=== PATIENT | female | born 1940 | race Caucasian/White ===

== ENCOUNTER 2020-07-24 17:02 | Emergency (ER) | payer MEDICARE, OTHER ==
[~2020-07-24] VITALS: Ht 165.1 cm; Wt 102.5 kg
[2020-07-24 18:48] LABS: BASO % 0.2 % (0.0-1.0); EOS # 0.1 10^3/uL (0.0-0.5); EOS % 0.6 % (0.0-3.0); HEMOGLOBIN 14.2 g/dl (12.0-15.5); LYMPH % 24.5 % (24.0-44.0); MEAN CORPUSCULAR HEMOGLOBIN 29.9 pg (27.0-33.0); MEAN CORPUSCULAR VOLUME 90.5 fl (80.0-96.0); MONO # 0.5 10^3/uL (0.0-0.8); MONO % 6.2 % (0.0-5.0); NEUTROPHILS # 5.6 10^3/uL (1.5-8.5); NEUTROPHILS % 68.3 % (36.0-66.0); PLATELET COUNT, AUTOMATED 163 10^3/uL (150-450); RED BLOOD COUNT 4.75 10^6/uL (4.00-5.40); WHITE BLOOD COUNT 8.2 10^3/uL (4.0-10.0)
--- NOTE | 2020-07-24 18:57 | REP ---
INDICATION: sob. COMPARISON: None TECHNIQUE: The technique utilized in obtaining the radiograph has magnified the cardiac silhouette and attenuated the interstitial markings. FINDINGS: The cardiac silhouette is magnified by technique. There is mild cardiomegaly. There is a mild diffuse increase in the interstitial markings throughout the lung de leon without evidence of a patchy opacity. The osseous structures are within normal limits. IMPRESSION: Mild fibrotic changes are suspected. There is no evidence of acute cardiopulmonary disease. There is cardiomegaly accentuated by technique. Mild interstitial edema superimposed upon chronic change cannot be ruled out. <Electronically signed by Thomas Rao > 07/24/20 [id number]
[2020-07-24 18:58] LABS: INR 1.13; PROTHROMBIN TIME 14.8 SECONDS (12.5-14.3)
[2020-07-24 19:11] LABS: ALBUMIN 3.9 GM/DL (3.2-5.2); ALT/SGPT 42 U/L (12-78); BLOOD UREA NITROGEN 15 MG/DL (7-18); CARBON DIOXIDE LEVEL 26 MEQ/L (21-32); CHLORIDE LEVEL 110 MEQ/L (98-107); CREATININE FOR GFR 0.73 MG/DL (0.55-1.30); GLOMERULAR FILTRATION RATE > 60.0 (>39); GLUCOSE, FASTING 113 MG/DL (70-100); SODIUM LEVEL 142 MEQ/L (136-145); TOTAL PROTEIN 6.7 GM/DL (6.4-8.2)
--- NOTE | 2020-07-24 19:26 | ECGEPIP ---
[facility] - ED Test Date: 2020-07-24 Pat Name: NATI MAGANA Department: Room: - Gender: Female Graphics Editor: WON : 1940 Requested By: Deana Blue Order Number: [id number] Reading MD: Cooper Abarca Measurements Intervals [place] Rate: 93 P: 56 [place]: 173 QRS: 90 QRSD: 118 T: -4 QT: 378 QTc: 470 Interpretive Statements SINUS RHYTHM LOW QRS VOLTAGE IN PRECORDIAL LEADS RIGHT BUNDLE BRANCH BLOCK POSSIBLE ANTERIOR MYOCARDIAL INFARCTION, OF INDETERMINATE AGE NO PRIORS FOR COMPARISON Electronically Signed on 07-24-2020 19:26:29 EST by Cooper Abarca
[2020-07-24] MEDS: GASTROGRAFIN SOLUTION 30ML PO SCH ×2 (22:03→22:32)
[2020-07-24] MEDS ORDERED: ISOVUE-370 76% 100ML VIAL As Ordered ONE (23:18)
--- NOTE | 2020-07-25 00:09 | REPVR ---
PROCEDURE INFORMATION: Exam: CT Abdomen And Pelvis With Contrast Exam date and time: 07/24/2020 11:29 PM Age: 80 years old Clinical indication: Abdominal pain; Localized; Right; Additional info: Abdominal pain, ruq, rlq, brb per rectum TECHNIQUE: Imaging protocol: Computed tomography of the abdomen and pelvis with intravenous contrast. Radiation optimization: All CT scans at this facility use at least one of these dose optimization techniques: automated exposure control; mA and/or kV adjustment per patient size (includes targeted exams where dose is matched to clinical indication); or iterative reconstruction. Contrast material: ISOVUE 370; Contrast volume: 100 ml; Contrast route: INTRAVENOUS (IV); COMPARISON: No relevant prior studies available. FINDINGS: Liver: Cirrhotic liver morphology with liver surface nodularity. No liver masses are seen. Gallbladder and bile ducts: Multiple small layering calculi in the gallbladder. No gallbladder wall thickening or pericholecystic fluid. No biliary duct dilation. Pancreas: There is a 17 x 11 mm cystic lesion in the body of the pancreas. Pancreas appears mildly atrophic. No solid pancreatic mass, duct dilation, or inflammatory changes. Spleen: Mild splenomegaly. Spleen measures approximately 15 cm. Adrenal glands: Normal. No mass. Kidneys and ureters: Normal. No hydronephrosis. 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 There is colonic diverticulosis without evidence of diverticulitis. The small bowel is unremarkable. Appendix: The appendix is not well-visualized. No right lower quadrant inflammatory changes. Intraperitoneal space: Unremarkable. No free air. No significant fluid collection. Vasculature: Portal vein is patent. No aortic aneurysm or dissection. Lymph nodes: Unremarkable. No enlarged lymph nodes. Urinary bladder: Unremarkable as visualized. Reproductive: There has been prior hysterectomy. Bones/joints: There are advanced degenerative changes in the spine and pelvis. Multilevel spinal stenosis in the lumbar spine. 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 Grade 1 anterolisthesis at L4-L5. Soft tissues: There is a small fat containing umbilical hernia. IMPRESSION: 1. Colonic diverticulosis without evidence of diverticulitis. 2. Incidental lipoma of the ileocecal valve. No bowel obstruction or inflammatory changes. 3. Cirrhotic liver morphology with splenomegaly. 4. Cholelithiasis without secondary signs of acute cholecystitis. 5. Advanced degenerative spondylosis with multilevel spinal stenosis. Advanced degenerative changes in the hips. Electronically signed by: Deshaun Smith On 07/25/2020 00:09:44 AM
[2020-07-25 01:15] VITALS: BP 153/69
== END 2020-07-25 01:25 | disposition home or self-care (01) ==
LOC: M ED 17:02
DX: K57.30 Diverticulosis of large intestine without perforation or abscess without bleeding (principal); I45.10 Unspecified right bundle-branch block; D17.5 Benign lipomatous neoplasm of intra-abdominal organs; R16.1 Splenomegaly, not elsewhere classified; K74.60 Unspecified cirrhosis of liver; K80.20 Calculus of gallbladder without cholecystitis without obstruction; M47.16 Other spondylosis with myelopathy, lumbar region; M16.9 Osteoarthritis of hip, unspecified; I51.7 Cardiomegaly; Z91.011 Allergy to milk products
CPT/HCPCS: 71045; 74177; 80053; 85025; 85610; 86850; 86900; 86901; 93005; 99285; Q9963; Q9967

== ENCOUNTER → 2020-09-14 | Outpatient (REF) | payer MEDICARE, OTHER ==
[2020-09-14 13:05] LABS: BASO % 0.3 % (0.0-1.0); EOS # 0.2 10^3/uL (0.0-0.5); EOS % 1.9 % (0.0-3.0); HEMATOCRIT 48.4 % (36.0-47.0); HEMOGLOBIN 15.3 g/dl (12.0-15.5); LYMPH # 2.4 10^3/uL (1.5-5.0); LYMPH % 25.1 % (24.0-44.0); MEAN CORPUSCULAR HGB CONC 31.6 g/dl (32.0-36.5); MEAN CORPUSCULAR VOLUME 88.6 fl (80.0-96.0); MONO # 0.6 10^3/uL (0.0-0.8); MONO % 6.6 % (0.0-5.0); NEUTROPHILS # 6.3 10^3/uL (1.5-8.5); NEUTROPHILS % 65.8 % (36.0-66.0); PLATELET COUNT, AUTOMATED 163 10^3/uL (150-450); RED BLOOD COUNT 5.46 10^6/uL (4.00-5.40); WHITE BLOOD COUNT 9.6 10^3/uL (4.0-10.0)
[2020-09-14 13:06] LABS: AMORPHOUS SEDIMENT SMALL (NEGATIVE); APPEARANCE, URINE CLOUDY (CLEAR); BACTERIA, URINE AUTO 3+ (NEGATIVE); BILIRUBIN, URINE AUTO NEGATIVE (NEGATIVE); BLOOD, URINE BLOOD 1+ (NEGATIVE); COLOR, URINE YELLOW (YELLOW); GLUCOSE, URINE (UA) AUTO NEGATIVE (NEGATIVE); KETONE, URINE AUTO NEGATIVE (NEGATIVE); LEUKOCYTE ESTERASE, URINE AUTO 3+ (NEGATIVE); MUCUS, URINE SMALL (NEGATIVE); NITRITE, URINE AUTO POSITIVE (NEGATIVE); PROTEIN, URINE AUTO 1+ mg/dL (NEGATIVE); RBC, URINE AUTO 6 /HPF (0-3); SPECIFIC GRAVITY URINE AUTO 1.019 (1.002-1.035); SQUAMOUS EPITHELIAL CELL UR AU 5 /HPF (0-6); UROBILINOGEN, URINE AUTO 0.2 mg/dL (0.0-2.0); WBC, URINE AUTO 91 /HPF (0-3)
[2020-09-14 13:21] LABS: INR 1.12; PROTHROMBIN TIME 14.7 SECONDS (12.5-14.3)
[2020-09-14 13:42] LABS: ALBUMIN 4.1 GM/DL (3.2-5.2); ALT/SGPT 50 U/L (12-78); BILIRUBIN,TOTAL 1.1 MG/DL (0.2-1.0); BLOOD UREA NITROGEN 18 MG/DL (7-18); CALCIUM LEVEL 9.5 MG/DL (8.8-10.2); CARBON DIOXIDE LEVEL 28 MEQ/L (21-32); CHLORIDE LEVEL 104 MEQ/L (98-107); CHOLESTEROL LEVEL 182 MG/DL (<200); CHOLESTEROL RISK RATIO 3.084 (<5); CREATININE FOR GFR 0.74 MG/DL (0.55-1.30); FERRITIN 102 NG/ML (8-252); GLOMERULAR FILTRATION RATE > 60.0 (>39); GLUCOSE, FASTING 127 MG/DL (70-100); HDL CHOLESTEROL 59 MG/DL (>40); IRON (FE) 70 UG/DL (50-170); LDL CHOLESTEROL 101 MG/DL (<100); MAGNESIUM LEVEL 2.1 MG/DL (1.8-2.4); NON-HDL-C 123 MG/DL; PERCENT SATURATION 19.3 % (13.2-45.0); POTASSIUM SERUM 4.1 MEQ/L (3.5-5.1); SODIUM LEVEL 140 MEQ/L (136-145); TOTAL 25(OH) VITAMIN D 10.4 NG/ML (30.0-100.0); TOTAL IRON BINDING CAPACITY 363 UG/DL (250-450); TRIGLYCERIDES LEVEL 108 MG/DL (<150)
[2020-09-14 13:43] LABS: VITAMIN B12 LEVEL 375 PG/ML
[2020-09-14 13:44] LABS: FOLATE 9.6 NG/ML
[2020-09-14 13:54] LABS: HEPATITIS B SURFACE ANTIGEN NEGATIVE (NEGATIVE)
[2020-09-14 14:20] LABS: HEMOGLOBIN A1c 4.6 %; HEPATITIS B CORE ANTIBODY IGM NEGATIVE (NEGATIVE); HEPATITIS C VIRUS ABY INDEX < 0.0 INDEX (<0.8)
[2020-09-14 14:23] LABS: HEPATITIS A ANTIBODY IGM NEGATIVE (NEGATIVE)
== END ==
LOC: M SFHCADAM 11:00
PROVIDERS: ATTEND Physician Assistant Medical
DX: K74.60 Unspecified cirrhosis of liver (principal); E66.01 Morbid (severe) obesity due to excess calories; R03.0 Elevated blood-pressure reading, without diagnosis of hypertension; K92.1 Melena; N39.41 Urge incontinence
CPT/HCPCS: 80053; 80061; 81001; 82105; 82140; 82306; 82607; 82728; 82746; 83036; 83550; 83735; 84443; 85025; 85610; 86705; 86709; 86803; 87086; 87340; G0463

== ENCOUNTER → 2020-09-18 | Outpatient (CLI) | payer MEDICARE, OTHER ==
--- NOTE | 2020-09-18 08:02 | REP ---
INDICATION: CIRRHOSIS OF LIVER COMPARISON: None. TECHNIQUE: Real time bui scale ultrasound examination using curved array transducer. FINDINGS: Liver demonstrates mild coarsened echotexture without focal hepatic lesion identified . Pancreas is incompletely evaluated due to interposed bowel gas but visualized portions appear normal. The gallbladder demonstrates few gallstones without wall thickening, or pericholecystic fluid. No biliary ductal dilatation is appreciated and the common bile duct measures 3.5 mm diameter. Right kidney is normal in reniform shape without hydronephrosis and measures 9.3 x 3.9 x 3.1 cm. No ascites in the visualized right upper quadrant. IMPRESSION: 1. Coarsened hepatic echotexture suggesting hepatocellular disease. No focal hepatic lesion. 2. Cholelithiasis. <Electronically signed by Peter Uribe > 09/18/20 [id number]
== END ==
LOC: M RAD 07:10
PROVIDERS: ATTEND Physician Assistant Medical
DX: K74.60 Unspecified cirrhosis of liver (principal); K80.20 Calculus of gallbladder without cholecystitis without obstruction

== ENCOUNTER → 2020-10-03 | Outpatient (REF) | payer MEDICARE, OTHER | LOC: M SFHCADAM 11:16 | PROVIDERS: ATTEND Physician Assistant Medical | DX: N39.41 Urge incontinence (principal) ==

== ENCOUNTER → 2021-04-03 | Outpatient (REF) | payer MEDICARE, OTHER ==
[2021-04-04 13:23] LABS: AMORPHOUS SEDIMENT MODERATE (NEGATIVE); APPEARANCE, URINE TURBID (CLEAR); BACTERIA, URINE AUTO 3+ (NEGATIVE); BILIRUBIN, URINE AUTO NEGATIVE (NEGATIVE); BLOOD, URINE BLOOD 1+ (NEGATIVE); COLOR, URINE YELLOW (YELLOW); GLUCOSE, URINE (UA) AUTO NEGATIVE (NEGATIVE); KETONE, URINE AUTO NEGATIVE (NEGATIVE); LEUKOCYTE ESTERASE, URINE AUTO 1+ (NEGATIVE); MUCUS, URINE SMALL (NEGATIVE); NITRITE, URINE AUTO POSITIVE (NEGATIVE); PROTEIN, URINE AUTO 1+ mg/dL (NEGATIVE); RBC, URINE AUTO 2 /HPF (0-3); SPECIFIC GRAVITY URINE AUTO 1.025 (1.002-1.035); SQUAMOUS EPITHELIAL CELL UR AU 2 /HPF (0-6); UROBILINOGEN, URINE AUTO 0.2 mg/dL (0.0-2.0); WBC, URINE AUTO 7 /HPF (0-3)
== END ==
LOC: M LABDRWAD 12:41
PROVIDERS: ATTEND Physician Assistant Medical
DX: N39.41 Urge incontinence (principal); E55.9 Vitamin D deficiency, unspecified

== ENCOUNTER → 2021-04-10 | Outpatient (REF) | payer MEDICARE, OTHER ==
[2021-04-10 12:49] LABS: BASO % 0.5 % (0.0-1.0); EOS # 0.2 10^3/uL (0.0-0.5); HEMOGLOBIN 14.8 g/dl (12.0-15.5); LYMPH # 2.9 10^3/uL (1.5-5.0); LYMPH % 32.6 % (24.0-44.0); MEAN CORPUSCULAR HEMOGLOBIN 28.4 pg (27.0-33.0); MEAN CORPUSCULAR HGB CONC 31.5 g/dl (32.0-36.5); MEAN CORPUSCULAR VOLUME 90.2 fl (80.0-96.0); MONO # 0.6 10^3/uL (0.0-0.8); MONO % 6.6 % (2.0-8.0); NEUTROPHILS # 5.1 10^3/uL (1.5-8.5); NEUTROPHILS % 57.8 % (36.0-66.0); PLATELET COUNT, AUTOMATED 159 10^3/uL (150-450); RED BLOOD COUNT 5.21 10^6/uL (4.00-5.40); WHITE BLOOD COUNT 8.8 10^3/uL (4.0-10.0)
[2021-04-10 13:18] LABS: ALT/SGPT 39 U/L (12-78); BILIRUBIN,TOTAL 1.3 MG/DL (0.2-1.0); BLOOD UREA NITROGEN 20 MG/DL (7-18); CALCIUM LEVEL 8.9 MG/DL (8.8-10.2); CARBON DIOXIDE LEVEL 28 MEQ/L (21-32); CHLORIDE LEVEL 106 MEQ/L (98-107); CREATININE FOR GFR 0.71 MG/DL (0.55-1.30); FERRITIN 98 NG/ML (8-252); GLOMERULAR FILTRATION RATE > 60.0 (>39); GLUCOSE, FASTING 102 MG/DL (70-100); IRON (FE) 109 UG/DL (50-170); PERCENT SATURATION 30.8 % (13.2-45.0); POTASSIUM SERUM 3.9 MEQ/L (3.5-5.1); SODIUM LEVEL 140 MEQ/L (136-145); TOTAL IRON BINDING CAPACITY 354 UG/DL (250-450); TOTAL PROTEIN 6.8 GM/DL (6.4-8.2)
== END ==
LOC: M SFHCADAM 11:20
PROVIDERS: ATTEND Physician Assistant Medical
DX: K74.60 Unspecified cirrhosis of liver (principal); E66.01 Morbid (severe) obesity due to excess calories; N39.41 Urge incontinence; E55.9 Vitamin D deficiency, unspecified

== ENCOUNTER → 2021-04-25 | Outpatient (CLI) | payer MEDICARE, OTHER ==
--- NOTE | 2021-04-25 09:05 | REP ---
INDICATION: CIRRHOSIS OF LIVER. COMPARISON: Ultrasound 09/18/2020. CT 07/24/2020. TECHNIQUE: Real-time sonographic evaluation of right upper quadrant performed. FINDINGS: Subcentimeter mobile gallstones are again seen in the gallbladder, the largest measures 8 mm in diameter. There is no gallbladder wall thickening.. There is no intrahepatic or extrahepatic biliary dilatation, common bile duct measures 2 mm in maximum diameter. The liver demonstrates diffuse heterogeneous coarsened echotexture compatible with the history of cirrhosis. No liver mass is visualized sonographically. The pancreas is not optimally visualized due to overlying bowel gas. However, there is a 1.4 cm simple anechoic cystic structure in the body of the pancreas. This is unchanged since the CT exam of 07/24/2020. there is no pancreatic duct dilatation. The right kidney demonstrates no hydronephrosis, with a normal size of 11.1 cm in length. No free fluid is seen. IMPRESSION: Mobile subcentimeter gallstones in the gallbladder without gallbladder wall thickening, free fluid or biliary dilatation. Heterogeneous coarsened echotexture of the liver compatible with cirrhosis, with no evidence of liver mass sonographically. There is a 1.4 cm cystic structure in the body of the pancreas which is unchanged since the CT of 07/24/2020. Recommend follow-up MRI of the pancreas with and without contrast in 6-12 months for further evaluation. <Electronically signed by Jesus Alfaro > 04/25/21 0923
== END ==
LOC: M RAD 08:08
PROVIDERS: ATTEND Physician Assistant Medical
DX: K74.60 Unspecified cirrhosis of liver (principal); K80.20 Calculus of gallbladder without cholecystitis without obstruction; K86.2 Cyst of pancreas

== ENCOUNTER → 2021-12-28 | Outpatient (REF) | payer MEDICARE, OTHER ==
[2021-12-28 12:53] LABS: BASO % 0.4 % (0.0-1.0); EOS # 0.1 10^3/uL (0.0-0.5); EOS % 1.3 % (0.0-3.0); HEMATOCRIT 44.9 % (36.0-47.0); HEMOGLOBIN 14.8 g/dl (12.0-15.5); LYMPH # 2.3 10^3/uL (1.5-5.0); LYMPH % 24.4 % (24.0-44.0); MEAN CORPUSCULAR HEMOGLOBIN 29.3 pg (27.0-33.0); MEAN CORPUSCULAR VOLUME 88.9 fl (80.0-96.0); MONO # 0.7 10^3/uL (0.0-0.8); MONO % 7.5 % (2.0-8.0); NEUTROPHILS # 6.2 10^3/uL (1.5-8.5); PLATELET COUNT, AUTOMATED 153 10^3/uL (150-450); RED BLOOD COUNT 5.05 10^6/uL (4.00-5.40); WHITE BLOOD COUNT 9.4 10^3/uL (4.0-10.0)
[2021-12-28 13:27] LABS: ALBUMIN 3.7 GM/DL (3.2-5.2); ALT/SGPT 30 U/L (12-78); BILIRUBIN,TOTAL 1.4 MG/DL (0.2-1.0); BLOOD UREA NITROGEN 20 MG/DL (7-18); CALCIUM LEVEL 9.5 MG/DL (8.8-10.2); CARBON DIOXIDE LEVEL 24 MEQ/L (21-32); CHLORIDE LEVEL 110 MEQ/L (98-107); CREATININE FOR GFR 0.63 MG/DL (0.55-1.30); FERRITIN 77 NG/ML (8-252); GLOMERULAR FILTRATION RATE > 60.0 (>32); GLUCOSE, FASTING 122 MG/DL (70-100); IRON (FE) 86 UG/DL (50-170); PERCENT SATURATION 25.5 % (13.2-45.0); POTASSIUM SERUM 4.2 MEQ/L (3.5-5.1); SODIUM LEVEL 142 MEQ/L (136-145); TOTAL IRON BINDING CAPACITY 337 UG/DL (250-450); TOTAL PROTEIN 6.6 GM/DL (6.4-8.2)
[2021-12-28 13:28] LABS: TOTAL 25(OH) VITAMIN D 7.4 NG/ML (30.0-100.0)
== END ==
LOC: M SFHCADAM 09:57
PROVIDERS: ATTEND Physician Assistant Medical
DX: K74.60 Unspecified cirrhosis of liver (principal); E66.01 Morbid (severe) obesity due to excess calories; E55.9 Vitamin D deficiency, unspecified; N39.41 Urge incontinence

== ENCOUNTER → 2022-01-23 | Outpatient (CLI) | payer MEDICARE, OTHER | LOC: M PLAIMG 14:46 | PROVIDERS: ATTEND Physician Assistant Medical | DX: K74.60 Unspecified cirrhosis of liver (principal); K86.2 Cyst of pancreas; Z53.9 Procedure and treatment not carried out, unspecified reason ==

== ENCOUNTER → 2022-07-10 | Outpatient (REF) | payer MEDICARE, OTHER ==
[2022-07-10 14:31] LABS: BASO % 0.4 % (0.0-1.0); EOS # 0.1 10^3/uL (0.0-0.5); EOS % 1.6 % (0.0-3.0); HEMATOCRIT 43.9 % (36.0-47.0); HEMOGLOBIN 13.6 g/dl (12.0-15.5); LYMPH # 2.1 10^3/uL (1.5-5.0); LYMPH % 27.5 % (24.0-44.0); MEAN CORPUSCULAR HEMOGLOBIN 28.3 pg (27.0-33.0); MEAN CORPUSCULAR VOLUME 91.5 fl (80.0-96.0); MONO # 0.5 10^3/uL (0.0-0.8); MONO % 6.5 % (2.0-8.0); NEUTROPHILS # 4.8 10^3/uL (1.5-8.5); NEUTROPHILS % 63.6 % (36.0-66.0); PLATELET COUNT, AUTOMATED 149 10^3/uL (150-450); WHITE BLOOD COUNT 7.5 10^3/uL (4.0-10.0)
[2022-07-10 17:24] LABS: ALBUMIN 3.9 G/DL (3.2-5.2); ALT/SGPT 29 U/L (7.0-40); BILIRUBIN,TOTAL 1.1 MG/DL (0.3-1.2); BLOOD UREA NITROGEN 16 MG/DL (9-23); CALCIUM LEVEL 8.7 MG/DL (8.3-10.6); CARBON DIOXIDE LEVEL 25 MMOL/L (20-31); CHLORIDE LEVEL 105 MMOL/L (98-107); CHOLESTEROL LEVEL 169 MG/DL (<200); CHOLESTEROL RISK RATIO 2.84 (<5); CREATININE FOR GFR 0.68 MG/DL (0.55-1.30); GLOMERULAR FILTRATION RATE > 60.0 (>32); GLUCOSE, FASTING 103 MG/DL (74-106); HDL CHOLESTEROL 59.4 MG/DL (>40); LDL CHOLESTEROL 91.8 MG/DL (<100); NON-HDL-C 110 MG/DL; POTASSIUM SERUM 4.4 MMOL/L (3.5-5.1); SODIUM LEVEL 142 MMOL/L (136-145); THYROID STIMULATING HORMONE 1.649 uIU/ML (0.55-4.78); TOTAL 25(OH) VITAMIN D 13.8 NG/ML (20.0-100.0); TOTAL PROTEIN 6.5 G/DL (5.7-8.2); TRIGLYCERIDES LEVEL 89 MG/DL (<150)
== END ==
LOC: M SFHCADAM 10:59
PROVIDERS: ATTEND Physician Assistant Medical
DX: K74.60 Unspecified cirrhosis of liver (principal); E66.01 Morbid (severe) obesity due to excess calories; E55.9 Vitamin D deficiency, unspecified; Z79.899 Other long term (current) drug therapy

== ENCOUNTER 2022-11-25 23:01 | Inpatient (IN) | payer MEDICARE, OTHER ==
[~2022-11-25] VITALS: Ht 162.6 cm; Wt 95.0 kg
[2022-11-25] MEDS ORDERED: ONDANSETRON 4MG 2ML VIAL IV ONE (23:25)
[2022-11-26] MEDS: MORPHINE 2 MG/ML 1ML VIAL IV PRN ×3 (00:08→05:48)
[2022-11-26 00:32] LABS: BASO % 0.3 % (0.0-1.0); EOS % 0.1 % (0.0-3.0); HEMATOCRIT 42.8 % (36.0-47.0); HEMOGLOBIN 14.1 g/dl (12.0-15.5); LYMPH # 0.9 10^3/uL (1.5-5.0); LYMPH % 5.5 % (24.0-44.0); MEAN CORPUSCULAR HEMOGLOBIN 28.5 pg (27.0-33.0); MEAN CORPUSCULAR HGB CONC 32.9 g/dl (32.0-36.5); MEAN CORPUSCULAR VOLUME 86.6 fl (80.0-96.0); NEUTROPHILS % 87.7 % (36.0-66.0); PLATELET COUNT, AUTOMATED 182 10^3/uL (150-450); RED BLOOD COUNT 4.94 10^6/uL (4.00-5.40); WHITE BLOOD COUNT 15.9 10^3/uL (4.0-10.0)
[2022-11-26 00:45] LABS: INR 1.13; PARTIAL THROMBOPLASTIN TIME 26.1 SECONDS (24.8-34.2); PROTHROMBIN TIME 14.7 SECONDS (12.5-14.5)
[2022-11-26 00:47] LABS: CK-MB VALUE MASS 2.9 NG/ML (<3.6)
[2022-11-26 00:49] LABS: BLOOD UREA NITROGEN 25 MG/DL (9-23); CALCIUM LEVEL 8.5 MG/DL (8.3-10.6); CARBON DIOXIDE LEVEL 24 MMOL/L (20-31); CHLORIDE LEVEL 110 MMOL/L (98-107); CREATININE FOR GFR 0.54 MG/DL (0.55-1.30); GLOMERULAR FILTRATION RATE > 60.0 (>32); GLUCOSE, FASTING 139 MG/DL (74-106); POTASSIUM SERUM 3.5 MMOL/L (3.5-5.1); SODIUM LEVEL 142 MMOL/L (136-145)
[2022-11-26 00:59] LABS: CPK CREATINE PHOSPHOKINASE 134 U/L (34-145); MB/CK RELATIVE INDEX 2.16 (< OR =4)
[2022-11-26] MEDS ORDERED: MORPHINE 4 MG/ML 1ML VIAL IV PRN (04:25)
[2022-11-26] MEDS ORDERED: ONDANSETRON 4MG 2ML VIAL IV PRN ×2 (05:05→21:45)
[2022-11-26 05:33] VITALS: BP 116/57
[2022-11-26] MEDS ORDERED: HOME MED LIST COMPLETE! XX SCH (05:55)
[2022-11-26] MEDS: NS 1,000 ML IV SCH ×2 (05:55→15:11)
[2022-11-26] MEDS ORDERED: SODIUM CHLORIDE NASAL 0.65% SPRAY BTL (OCEAN) PRN (08:40)
[2022-11-26] MEDS: MORPHINE 4 MG/ML 1ML VIAL IV PRN ×3 (09:59→22:42)
[2022-11-26] MEDS: NYSTATIN CREAM 15GM TOP SCH ×2 (10:49→23:15)
[2022-11-26 11:00] VITALS: BP 137/61
[2022-11-26 14:00] VITALS: BP 142/81
[2022-11-26] MEDS ORDERED: fentaNYL 100 MCG/2 ML INJECTION As Ordered ONE (20:20)
[2022-11-26] MEDS ORDERED: MIDAZOLAM INJ 2MG/2ML VIAL As Ordered ONE (20:20)
[2022-11-26] MEDS ORDERED: propofoL 200 MG/20 ML VIAL As Ordered ONE ×2 (20:20→20:23)
[2022-11-26] MEDS ORDERED: ONDANSETRON 4MG 2ML VIAL As Ordered ONE (20:20)
[2022-11-26] MEDS ORDERED: LIDOCAINE 2% 100MG/5ML SDV (FOR ANES.) As Ordered ONE (20:20)
[2022-11-26] MEDS ORDERED: ACETAMINOPHEN 1000MG 100ML IV BAG As Ordered ONE (20:20)
[2022-11-26] MEDS ORDERED: ceFAZolin 1GM VIAL As Ordered ONE (21:00)
[2022-11-26] MEDS ORDERED: LR 1,000 ML IV SCH (21:45)
[2022-11-26] MEDS ORDERED: fentaNYL 100 MCG/2 ML INJECTION IV PRN (21:45)
[2022-11-26 22:30] VITALS: BP 133/72
[2022-11-26 23:00] VITALS: BP 109/57
[2022-11-26] MEDS: cefTRIAXone SOD 1 GM in D5W MINI-BAG PLUS 50 ML IV SCH (23:26)
[2022-11-26 23:30] VITALS: BP 109/57
[2022-11-27] VITALS (10 sets, daily range): BP systolic 112–127; BP diastolic 56–73
[2022-11-27] MEDS: NS 1,000 ML IV SCH (01:12)
[2022-11-27] MEDS: ceFAZolin SOD 2 GM in IV 1 EA IV SCH ×2 (05:07→14:07)
[2022-11-27 06:44] LABS: HEMATOCRIT 34.9 % (36.0-47.0); MEAN CORPUSCULAR HEMOGLOBIN 28.2 pg (27.0-33.0); MEAN CORPUSCULAR HGB CONC 32.1 g/dl (32.0-36.5); MEAN CORPUSCULAR VOLUME 87.9 fl (80.0-96.0); PLATELET COUNT, AUTOMATED 129 10^3/uL (150-450); RED BLOOD COUNT 3.97 10^6/uL (4.00-5.40); WHITE BLOOD COUNT 9.8 10^3/uL (4.0-10.0)
[2022-11-27 06:46] LABS: HEMOGLOBIN 11.2 g/dl (12.0-15.5)
[2022-11-27 07:04] LABS: ALBUMIN 2.6 G/DL (3.2-5.2); ALKALINE PHOSPHATASE 88 U/L (46-116); ALT/SGPT 25 U/L (7.0-40); AST/SGOT 33 U/L (<34); BILIRUBIN,TOTAL 0.7 MG/DL (0.3-1.2); BLOOD UREA NITROGEN 19 MG/DL (9-23); CALCIUM LEVEL 7.5 MG/DL (8.3-10.6); CARBON DIOXIDE LEVEL 24 MMOL/L (20-31); CHLORIDE LEVEL 109 MMOL/L (98-107); CREATININE FOR GFR 0.55 MG/DL (0.55-1.30); GLOMERULAR FILTRATION RATE > 60.0 (>32); GLUCOSE, FASTING 162 MG/DL (74-106); MAGNESIUM LEVEL 1.8 MG/DL (1.8-2.4); POTASSIUM SERUM 4.3 MMOL/L (3.5-5.1); SODIUM LEVEL 141 MMOL/L (136-145); TOTAL PROTEIN 4.7 G/DL (5.7-8.2)
[2022-11-27] MEDS: NYSTATIN CREAM 15GM TOP SCH ×2 (09:00→20:44)
[2022-11-27] MEDS: MORPHINE 2 MG/ML 1ML VIAL IV PRN (15:11)
[2022-11-27] MEDS ORDERED: CYCLOBENZAPRINE 5MG TABLET PO PRN (16:30)
[2022-11-27] MEDS: cefTRIAXone SOD 1 GM in D5W MINI-BAG PLUS 50 ML IV SCH (20:44)
[2022-11-28 05:51] VITALS: BP 136/69
[2022-11-28 06:35] LABS: HEMOGLOBIN 10.5 g/dl (12.0-15.5); MEAN CORPUSCULAR HEMOGLOBIN 28.9 pg (27.0-33.0); MEAN CORPUSCULAR HGB CONC 32.8 g/dl (32.0-36.5); MEAN CORPUSCULAR VOLUME 88.2 fl (80.0-96.0); PLATELET COUNT, AUTOMATED 133 10^3/uL (150-450); RED BLOOD COUNT 3.63 10^6/uL (4.00-5.40); WHITE BLOOD COUNT 8.6 10^3/uL (4.0-10.0)
[2022-11-28 06:58] LABS: ALBUMIN 2.5 G/DL (3.2-5.2); ALKALINE PHOSPHATASE 82 U/L (46-116); ALT/SGPT 24 U/L (7.0-40); AST/SGOT 39 U/L (<34); BLOOD UREA NITROGEN 17 MG/DL (9-23); CALCIUM LEVEL 7.5 MG/DL (8.3-10.6); CARBON DIOXIDE LEVEL 27 MMOL/L (20-31); CHLORIDE LEVEL 108 MMOL/L (98-107); CREATININE FOR GFR 0.61 MG/DL (0.55-1.30); GLOMERULAR FILTRATION RATE > 60.0 (>32); GLUCOSE, FASTING 108 MG/DL (74-106); SODIUM LEVEL 139 MMOL/L (136-145); TOTAL PROTEIN 4.5 G/DL (5.7-8.2)
[2022-11-28] MEDS ORDERED: PERC5TAB12 PO (08:00)
[2022-11-28] MEDS ORDERED: CYCL5TAB PO (08:00)
[2022-11-28] MEDS ORDERED: NYST-13 TOP (08:00)
[2022-11-28] MEDS ORDERED: CEFT1INJ4 IV (08:00)
[2022-11-28] MEDS ORDERED: Sodium Chloride Nasal Spray (08:00)
[2022-11-28] MEDS ORDERED: SENN-84 PO (08:01)
[2022-11-28] MEDS ORDERED: COLA100C5 PO (08:01)
== END 2022-11-28 11:12 | DRG 480 ==
LOC: M ED 23:01 → EDBD 23:01 → M ED INP 11-26 05:01 → M MSPAV 11-26 05:35
PROVIDERS: ADMIT Family Medicine; ATTEND Internal Medicine
PROC: 0QS736Z Reposition Left Upper Femur with Intramedullary Internal Fixation Device, Percutaneous Approach (ICD-10-PCS; principal; 2022-11-26 19:00)
DX: S72.142A Displaced intertrochanteric fracture of left femur, initial encounter for closed fracture (principal); J96.01 Acute respiratory failure with hypoxia; N39.0 Urinary tract infection, site not specified; J98.11 Atelectasis; D62 Acute posthemorrhagic anemia; K74.60 Unspecified cirrhosis of liver; B37.9 Candidiasis, unspecified; B96.20 Unspecified Escherichia coli [E. coli] as the cause of diseases classified elsewhere; Z90.49 Acquired absence of other specified parts of digestive tract; Z90.79 Acquired absence of other genital organ(s); Z91.011 Allergy to milk products; Z79.899 Other long term (current) drug therapy; W01.0XXA Fall on same level from slipping, tripping and stumbling without subsequent striking against object, initial encounter; Y92.009 Unspecified place in unspecified non-institutional (private) residence as the place of occurrence of the external cause

== ENCOUNTER 2022-11-28 08:38 | Inpatient (IN) | payer MEDICARE, OTHER ==
[~2022-11-28] VITALS: Ht 162.6 cm; Wt 99.8 kg
[~2022-11-28 08:38] MED LIST: CEFT1INJ4 IV; COLA100C5 PO; CYCL5TAB PO; NYST-13 TOP; PERC5TAB12 PO; SENN-84 PO; Sodium Chloride Nasal Spray
[2022-11-28] MEDS: PANTOPRAZOLE 40MG TAB (PROTONIX) PO SCH ×2 (09:00→12:50)
[2022-11-28] MEDS ORDERED: CYCLOBENZAPRINE 5MG TABLET PO PRN (10:50)
[2022-11-28] MEDS ORDERED: ONDANSETRON 4MG TAB PO PRN (10:50)
[2022-11-28] MEDS ORDERED: BISACODYL 10MG SUPP PR PRN (10:50)
[2022-11-28 11:30] VITALS: BP 125/60
[2022-11-28] MEDS: ENOXAPARIN 40MG/0.4ML SYRINGE (J1650 PER 10MG) SC SCH (12:51)
[2022-11-28] MEDS: NYSTATIN 100,000 UNITS/GM TOPICAL PWD 15GM TOP SCH ×2 (12:51→20:39)
[2022-11-28] MEDS: COMBIVENT RESPIMAT 100-20MCG INHALER 4GM INH SCH ×2 (13:12→20:06)
[2022-11-28 13:56] VITALS: BP 134/63
[2022-11-28] MEDS: guaiFENesin 200 MG TAB PO SCH ×2 (15:41→20:37)
[2022-11-28] MEDS: REMEDY PHYTOPLEX Z-GUARD PASTE 113GM TUBE (FROM STOREROOM PRODUCT) TOP SCH ×2 (15:41→20:42)
[2022-11-28] MEDS ORDERED: ACETAMINOPHEN 500 MG TAB PO SCH (16:00)
[2022-11-28] MEDS: ACETAMINOPHEN 650MG ER TAB (TYLENOL ARTHRITIS) PO SCH ×2 (16:40→20:38)
[2022-11-28] MEDS: LACTOBACILLUS ACIDOPHILUS CAP (BACID) PO SCH (17:28)
[2022-11-28 20:00] VITALS: BP 129/62
[2022-11-28] MEDS: cefTRIAXone SOD 1 GM in D5W MINI-BAG PLUS 50 ML IV ONE ×2 (20:36→21:00)
[2022-11-28] MEDS: SENNA 8.6 MG TAB (SENOKOT) PO SCH (20:37)
[2022-11-28] MEDS: DOCUSATE SODIUM 100MG CAPSULE PO SCH (20:39)
[2022-11-29 05:59] LABS: BASO % 0.5 % (0.0-1.0); EOS # 0.2 10^3/uL (0.0-0.5); EOS % 2.3 % (0.0-3.0); HEMATOCRIT 33.4 % (36.0-47.0); LYMPH # 2.3 10^3/uL (1.5-5.0); LYMPH % 29.1 % (24.0-44.0); MEAN CORPUSCULAR HEMOGLOBIN 28.6 pg (27.0-33.0); MEAN CORPUSCULAR HGB CONC 32.9 g/dl (32.0-36.5); MEAN CORPUSCULAR VOLUME 86.8 fl (80.0-96.0); MONO # 0.7 10^3/uL (0.0-0.8); MONO % 8.8 % (2.0-8.0); NEUTROPHILS # 4.7 10^3/uL (1.5-8.5); NEUTROPHILS % 58.8 % (36.0-66.0); PLATELET COUNT, AUTOMATED 146 10^3/uL (150-450); RED BLOOD COUNT 3.85 10^6/uL (4.00-5.40)
[2022-11-29 06:00] VITALS: BP 160/80
[2022-11-29 06:37] LABS: ALBUMIN 2.6 G/DL (3.2-5.2); ALKALINE PHOSPHATASE 92 U/L (46-116); ALT/SGPT 29 U/L (7.0-40); AST/SGOT 56 U/L (<34); BILIRUBIN,TOTAL 1.3 MG/DL (0.3-1.2); BLOOD UREA NITROGEN 15 MG/DL (9-23); CALCIUM LEVEL 7.4 MG/DL (8.3-10.6); CARBON DIOXIDE LEVEL 29 MMOL/L (20-31); CHLORIDE LEVEL 106 MMOL/L (98-107); CREATININE FOR GFR 0.56 MG/DL (0.55-1.30); GLOMERULAR FILTRATION RATE > 60.0 (>32); GLUCOSE, FASTING 102 MG/DL (74-106); POTASSIUM SERUM 3.8 MMOL/L (3.5-5.1); SODIUM LEVEL 142 MMOL/L (136-145); TOTAL PROTEIN 4.8 G/DL (5.7-8.2)
[2022-11-29] MEDS: COMBIVENT RESPIMAT 100-20MCG INHALER 4GM INH SCH ×3 (07:14→21:07)
[2022-11-29] MEDS: ACETAMINOPHEN 650MG ER TAB (TYLENOL ARTHRITIS) PO SCH ×3 (08:28→21:36)
[2022-11-29] MEDS: REMEDY PHYTOPLEX Z-GUARD PASTE 113GM TUBE (FROM STOREROOM PRODUCT) TOP SCH ×3 (08:28→21:37)
[2022-11-29] MEDS: DOCUSATE SODIUM 100MG CAPSULE PO SCH ×2 (08:28→21:00)
[2022-11-29] MEDS: LACTOBACILLUS ACIDOPHILUS CAP (BACID) PO SCH ×2 (08:28→17:41)
[2022-11-29] MEDS: guaiFENesin 200 MG TAB PO SCH ×3 (08:28→21:36)
[2022-11-29] MEDS: ENOXAPARIN 40MG/0.4ML SYRINGE (J1650 PER 10MG) SC SCH (08:28)
[2022-11-29] MEDS: PANTOPRAZOLE 40MG TAB (PROTONIX) PO SCH (08:28)
[2022-11-29] MEDS: NYSTATIN 100,000 UNITS/GM TOPICAL PWD 15GM TOP SCH ×2 (08:32→21:36)
[2022-11-29] MEDS ORDERED: FUROSEMIDE 20MG/2ML VIAL IV ONE (10:40)
[2022-11-29] MEDS: oxyCODONE 5MG TAB PO PRN (12:05)
[2022-11-29 14:00] VITALS: BP 133/62
[2022-11-29 20:00] VITALS: BP 123/70
[2022-11-29] MEDS: SENNA 8.6 MG TAB (SENOKOT) PO SCH (21:00)
[2022-11-30 06:00] VITALS: BP 132/66
[2022-11-30] MEDS: ACETAMINOPHEN 650MG ER TAB (TYLENOL ARTHRITIS) PO SCH (07:35)
[2022-11-30] MEDS: NYSTATIN 100,000 UNITS/GM TOPICAL PWD 15GM TOP SCH ×2 (07:36→20:29)
[2022-11-30] MEDS: DOCUSATE SODIUM 100MG CAPSULE PO SCH ×2 (07:36→20:27)
[2022-11-30] MEDS: LACTOBACILLUS ACIDOPHILUS CAP (BACID) PO SCH ×2 (07:36→16:46)
[2022-11-30] MEDS: ENOXAPARIN 40MG/0.4ML SYRINGE (J1650 PER 10MG) SC SCH (07:36)
[2022-11-30] MEDS: PANTOPRAZOLE 40MG TAB (PROTONIX) PO SCH (07:36)
[2022-11-30] MEDS: REMEDY PHYTOPLEX Z-GUARD PASTE 113GM TUBE (FROM STOREROOM PRODUCT) TOP SCH ×3 (07:37→20:30)
[2022-11-30] MEDS: guaiFENesin 200 MG TAB PO SCH ×3 (07:37→20:27)
[2022-11-30] MEDS: COMBIVENT RESPIMAT 100-20MCG INHALER 4GM INH SCH ×3 (07:40→20:12)
[2022-11-30] MEDS: ACETAMINOPHEN 325 MG TAB PO SCH ×3 (09:35→20:29)
[2022-11-30 10:24] LABS: BASO % 0.5 % (0.0-1.0); EOS # 0.2 10^3/uL (0.0-0.5); EOS % 2.1 % (0.0-3.0); LYMPH # 1.5 10^3/uL (1.5-5.0); LYMPH % 17.2 % (24.0-44.0); MEAN CORPUSCULAR HEMOGLOBIN 28.4 pg (27.0-33.0); MEAN CORPUSCULAR HGB CONC 32.4 g/dl (32.0-36.5); MEAN CORPUSCULAR VOLUME 87.9 fl (80.0-96.0); MONO # 0.7 10^3/uL (0.0-0.8); MONO % 7.7 % (2.0-8.0); NEUTROPHILS # 6.4 10^3/uL (1.5-8.5); NEUTROPHILS % 71.9 % (36.0-66.0); PLATELET COUNT, AUTOMATED 176 10^3/uL (150-450); RED BLOOD COUNT 3.87 10^6/uL (4.00-5.40); WHITE BLOOD COUNT 8.8 10^3/uL (4.0-10.0)
[2022-11-30 10:54] LABS: BLOOD UREA NITROGEN 18 MG/DL (9-23); CALCIUM LEVEL 7.6 MG/DL (8.3-10.6); CARBON DIOXIDE LEVEL 25 MMOL/L (20-31); CHLORIDE LEVEL 103 MMOL/L (98-107); GLOMERULAR FILTRATION RATE > 60.0 (>32); GLUCOSE, FASTING 159 MG/DL (74-106); POTASSIUM SERUM 3.5 MMOL/L (3.5-5.1); SODIUM LEVEL 137 MMOL/L (136-145)
[2022-11-30 14:00] VITALS: BP 134/58
[2022-11-30] MEDS ORDERED: ACETAMINOPHEN 325 MG TAB PO SCH (16:00)
[2022-11-30 20:00] VITALS: BP 128/59
[2022-11-30] MEDS: SENNA 8.6 MG TAB (SENOKOT) PO SCH (20:27)
[2022-12-01 06:00] VITALS: BP 130/62
[2022-12-01] MEDS: COMBIVENT RESPIMAT 100-20MCG INHALER 4GM INH SCH ×3 (07:16→21:09)
[2022-12-01] MEDS: PANTOPRAZOLE 40MG TAB (PROTONIX) PO SCH (08:23)
[2022-12-01] MEDS: LACTOBACILLUS ACIDOPHILUS CAP (BACID) PO SCH ×2 (08:24→17:59)
[2022-12-01] MEDS: guaiFENesin 200 MG TAB PO SCH ×3 (08:25→19:39)
[2022-12-01] MEDS: ACETAMINOPHEN 325 MG TAB PO SCH ×3 (08:26→19:39)
[2022-12-01] MEDS: DOCUSATE SODIUM 100MG CAPSULE PO SCH ×2 (08:26→19:43)
[2022-12-01] MEDS: ENOXAPARIN 40MG/0.4ML SYRINGE (J1650 PER 10MG) SC SCH (08:26)
[2022-12-01] MEDS: REMEDY PHYTOPLEX Z-GUARD PASTE 113GM TUBE (FROM STOREROOM PRODUCT) TOP SCH ×3 (08:27→19:44)
[2022-12-01] MEDS: NYSTATIN 100,000 UNITS/GM TOPICAL PWD 15GM TOP SCH ×2 (08:28→19:43)
[2022-12-01 14:00] VITALS: BP 142/63
[2022-12-01] MEDS: PREPARATION H OINTMENT (HEMORRHOID) PR PRN (19:40)
[2022-12-01] MEDS: SENNA 8.6 MG TAB (SENOKOT) PO SCH (19:43)
[2022-12-01 20:00] VITALS: BP 122/61
[2022-12-02 06:00] VITALS: BP 126/60
[2022-12-02 06:11] LABS: BASO % 0.1 % (0.0-1.0); EOS # 0.3 10^3/uL (0.0-0.5); EOS % 4.8 % (0.0-3.0); HEMATOCRIT 32.5 % (36.0-47.0); HEMOGLOBIN 10.5 g/dl (12.0-15.5); LYMPH # 1.8 10^3/uL (1.5-5.0); LYMPH % 26.6 % (24.0-44.0); MEAN CORPUSCULAR HEMOGLOBIN 28.6 pg (27.0-33.0); MEAN CORPUSCULAR HGB CONC 32.3 g/dl (32.0-36.5); MEAN CORPUSCULAR VOLUME 88.6 fl (80.0-96.0); MONO # 0.6 10^3/uL (0.0-0.8); MONO % 8.8 % (2.0-8.0); PLATELET COUNT, AUTOMATED 175 10^3/uL (150-450); RED BLOOD COUNT 3.67 10^6/uL (4.00-5.40); WHITE BLOOD COUNT 6.7 10^3/uL (4.0-10.0)
[2022-12-02 06:41] LABS: BLOOD UREA NITROGEN 14 MG/DL (9-23); CALCIUM LEVEL 7.8 MG/DL (8.3-10.6); CARBON DIOXIDE LEVEL 27 MMOL/L (20-31); CHLORIDE LEVEL 105 MMOL/L (98-107); CREATININE FOR GFR 0.58 MG/DL (0.55-1.30); GLOMERULAR FILTRATION RATE > 60.0 (>32); GLUCOSE, FASTING 119 MG/DL (74-106); POTASSIUM SERUM 3.4 MMOL/L (3.5-5.1); SODIUM LEVEL 139 MMOL/L (136-145)
[2022-12-02] MEDS: COMBIVENT RESPIMAT 100-20MCG INHALER 4GM INH SCH ×3 (07:28→20:11)
[2022-12-02] MEDS: PANTOPRAZOLE 40MG TAB (PROTONIX) PO SCH (08:20)
[2022-12-02] MEDS: LACTOBACILLUS ACIDOPHILUS CAP (BACID) PO SCH ×2 (08:20→17:12)
[2022-12-02] MEDS: guaiFENesin 200 MG TAB PO SCH ×3 (08:20→20:31)
[2022-12-02] MEDS: ENOXAPARIN 40MG/0.4ML SYRINGE (J1650 PER 10MG) SC SCH (08:21)
[2022-12-02] MEDS: ACETAMINOPHEN 325 MG TAB PO SCH ×3 (08:21→20:31)
[2022-12-02] MEDS: REMEDY PHYTOPLEX Z-GUARD PASTE 113GM TUBE (FROM STOREROOM PRODUCT) TOP SCH ×3 (08:22→20:32)
[2022-12-02] MEDS: DOCUSATE SODIUM 100MG CAPSULE PO SCH ×3 (08:22→20:36)
[2022-12-02] MEDS: NYSTATIN 100,000 UNITS/GM TOPICAL PWD 15GM TOP SCH ×2 (08:22→20:32)
[2022-12-02] MEDS: oxyCODONE 5MG TAB PO PRN (13:16)
[2022-12-02 13:58] VITALS: BP 138/65
[2022-12-02] MEDS ORDERED: POTASSIUM CHLORIDE 10MEQ SR TABLET PO ONE (17:00)
[2022-12-02 20:00] VITALS: BP 133/67
[2022-12-02] MEDS: SENNA 8.6 MG TAB (SENOKOT) PO SCH (20:31)
[2022-12-03 06:08] VITALS: BP 127/60
[2022-12-03 06:15] LABS: BLOOD UREA NITROGEN 17 MG/DL (9-23); CALCIUM LEVEL 7.7 MG/DL (8.3-10.6); CARBON DIOXIDE LEVEL 27 MMOL/L (20-31); CHLORIDE LEVEL 108 MMOL/L (98-107); CREATININE FOR GFR 0.58 MG/DL (0.55-1.30); GLOMERULAR FILTRATION RATE > 60.0 (>32); GLUCOSE, FASTING 121 MG/DL (74-106); POTASSIUM SERUM 3.7 MMOL/L (3.5-5.1); SODIUM LEVEL 140 MMOL/L (136-145)
[2022-12-03] MEDS: oxyCODONE 5MG TAB PO PRN (06:36)
[2022-12-03] MEDS: COMBIVENT RESPIMAT 100-20MCG INHALER 4GM INH SCH ×3 (07:31→19:37)
[2022-12-03] MEDS: LACTOBACILLUS ACIDOPHILUS CAP (BACID) PO SCH ×2 (09:09→16:55)
[2022-12-03] MEDS: PANTOPRAZOLE 40MG TAB (PROTONIX) PO SCH (09:09)
[2022-12-03] MEDS: REMEDY PHYTOPLEX Z-GUARD PASTE 113GM TUBE (FROM STOREROOM PRODUCT) TOP SCH ×3 (09:10→20:53)
[2022-12-03] MEDS: DOCUSATE SODIUM 100MG CAPSULE PO SCH ×2 (09:10→20:51)
[2022-12-03] MEDS: ENOXAPARIN 40MG/0.4ML SYRINGE (J1650 PER 10MG) SC SCH (09:10)
[2022-12-03] MEDS: guaiFENesin 200 MG TAB PO SCH ×3 (09:10→20:52)
[2022-12-03] MEDS: NYSTATIN 100,000 UNITS/GM TOPICAL PWD 15GM TOP SCH ×2 (09:12→20:53)
[2022-12-03] MEDS: ACETAMINOPHEN 325 MG TAB PO SCH ×3 (09:12→20:52)
[2022-12-03 14:00] VITALS: BP 130/62
[2022-12-03] MEDS: oxyCODONE 5MG TAB PO SCH (16:48)
[2022-12-03 19:45] VITALS: BP 123/59
[2022-12-03] MEDS: SENNA 8.6 MG TAB (SENOKOT) PO SCH (20:51)
[2022-12-04 06:00] VITALS: BP 129/62
[2022-12-04 06:23] LABS: BASO % 0.4 % (0.0-1.0); EOS # 0.3 10^3/uL (0.0-0.5); EOS % 4.2 % (0.0-3.0); HEMATOCRIT 33.2 % (36.0-47.0); HEMOGLOBIN 10.7 g/dl (12.0-15.5); LYMPH # 1.7 10^3/uL (1.5-5.0); LYMPH % 24.1 % (24.0-44.0); MEAN CORPUSCULAR HEMOGLOBIN 29.2 pg (27.0-33.0); MEAN CORPUSCULAR HGB CONC 32.2 g/dl (32.0-36.5); MEAN CORPUSCULAR VOLUME 90.5 fl (80.0-96.0); MONO # 0.6 10^3/uL (0.0-0.8); MONO % 7.9 % (2.0-8.0); NEUTROPHILS # 4.5 10^3/uL (1.5-8.5); NEUTROPHILS % 62.8 % (36.0-66.0); PLATELET COUNT, AUTOMATED 197 10^3/uL (150-450); RED BLOOD COUNT 3.67 10^6/uL (4.00-5.40); WHITE BLOOD COUNT 7.1 10^3/uL (4.0-10.0)
[2022-12-04 06:46] LABS: BLOOD UREA NITROGEN 18 MG/DL (9-23); CARBON DIOXIDE LEVEL 25 MMOL/L (20-31); CHLORIDE LEVEL 106 MMOL/L (98-107); CREATININE FOR GFR 0.65 MG/DL (0.55-1.30); GLOMERULAR FILTRATION RATE > 60.0 (>32); GLUCOSE, FASTING 139 MG/DL (74-106); POTASSIUM SERUM 3.8 MMOL/L (3.5-5.1); SODIUM LEVEL 140 MMOL/L (136-145)
[2022-12-04] MEDS: oxyCODONE 5MG TAB PO SCH ×3 (06:50→16:11)
[2022-12-04] MEDS: COMBIVENT RESPIMAT 100-20MCG INHALER 4GM INH SCH ×3 (07:10→21:27)
[2022-12-04] MEDS: DOCUSATE SODIUM 100MG CAPSULE PO SCH ×2 (08:43→22:12)
[2022-12-04] MEDS: LACTOBACILLUS ACIDOPHILUS CAP (BACID) PO SCH ×2 (08:44→17:12)
[2022-12-04] MEDS: ENOXAPARIN 40MG/0.4ML SYRINGE (J1650 PER 10MG) SC SCH (08:44)
[2022-12-04] MEDS: guaiFENesin 200 MG TAB PO SCH ×3 (08:44→22:11)
[2022-12-04] MEDS: PANTOPRAZOLE 40MG TAB (PROTONIX) PO SCH (08:44)
[2022-12-04] MEDS: REMEDY PHYTOPLEX Z-GUARD PASTE 113GM TUBE (FROM STOREROOM PRODUCT) TOP SCH ×3 (08:45→21:00)
[2022-12-04] MEDS: NYSTATIN 100,000 UNITS/GM TOPICAL PWD 15GM TOP SCH ×2 (08:51→21:00)
[2022-12-04] MEDS: ACETAMINOPHEN 325 MG TAB PO SCH ×3 (08:51→22:11)
[2022-12-04] MEDS: PREPARATION H OINTMENT (HEMORRHOID) PR PRN (08:52)
[2022-12-04 14:00] VITALS: BP 125/66
[2022-12-04] MEDS: FUROSEMIDE 20 MG TAB PO SCH (17:12)
[2022-12-04 20:00] VITALS: BP 119/58
[2022-12-04] MEDS: SENNA 8.6 MG TAB (SENOKOT) PO SCH (21:00)
[2022-12-05] MEDS: oxyCODONE 5MG TAB PO PRN (01:31)
[2022-12-05 05:32] VITALS: BP 150/68
[2022-12-05] MEDS ORDERED: oxyCODONE 5MG TAB PO SCH (07:00)
[2022-12-05] MEDS: COMBIVENT RESPIMAT 100-20MCG INHALER 4GM INH SCH ×3 (07:28→20:23)
[2022-12-05] MEDS: guaiFENesin 200 MG TAB PO SCH ×3 (09:00→20:36)
[2022-12-05] MEDS: DOCUSATE SODIUM 100MG CAPSULE PO SCH ×2 (09:00→20:36)
[2022-12-05] MEDS: LACTOBACILLUS ACIDOPHILUS CAP (BACID) PO SCH ×2 (09:15→18:06)
[2022-12-05] MEDS: ACETAMINOPHEN 325 MG TAB PO SCH ×3 (09:16→20:35)
[2022-12-05] MEDS: PANTOPRAZOLE 40MG TAB (PROTONIX) PO SCH (09:16)
[2022-12-05] MEDS: FUROSEMIDE 20 MG TAB PO SCH (09:16)
[2022-12-05] MEDS: ENOXAPARIN 40MG/0.4ML SYRINGE (J1650 PER 10MG) SC SCH (09:17)
[2022-12-05] MEDS: NYSTATIN 100,000 UNITS/GM TOPICAL PWD 15GM TOP SCH ×2 (09:17→20:35)
[2022-12-05] MEDS: REMEDY PHYTOPLEX Z-GUARD PASTE 113GM TUBE (FROM STOREROOM PRODUCT) TOP SCH ×3 (09:18→20:36)
[2022-12-05] MEDS: oxyCODONE 5MG TAB PO SCH ×2 (11:55→15:58)
[2022-12-05 14:00] VITALS: BP 152/70
[2022-12-05] MEDS: GABAPENTIN 100 MG CAP PO SCH ×2 (15:58→20:34)
[2022-12-05 20:00] VITALS: BP 112/58
[2022-12-05] MEDS: SENNA 8.6 MG TAB (SENOKOT) PO SCH (20:34)
[2022-12-06 06:00] VITALS: BP 134/67
[2022-12-06] MEDS: oxyCODONE 5MG TAB PO SCH ×3 (07:14→17:37)
[2022-12-06] MEDS: COMBIVENT RESPIMAT 100-20MCG INHALER 4GM INH SCH ×3 (08:02→20:06)
[2022-12-06] MEDS: LACTOBACILLUS ACIDOPHILUS CAP (BACID) PO SCH ×2 (08:16→17:35)
[2022-12-06] MEDS: guaiFENesin 200 MG TAB PO SCH ×3 (08:16→21:00)
[2022-12-06] MEDS: PANTOPRAZOLE 40MG TAB (PROTONIX) PO SCH ×2 (08:17→08:21)
[2022-12-06] MEDS: DOCUSATE SODIUM 100MG CAPSULE PO SCH ×3 (08:17→21:00)
[2022-12-06] MEDS: ACETAMINOPHEN 325 MG TAB PO SCH ×3 (08:17→21:01)
[2022-12-06] MEDS: FUROSEMIDE 20 MG TAB PO SCH (08:17)
[2022-12-06] MEDS: ENOXAPARIN 40MG/0.4ML SYRINGE (J1650 PER 10MG) SC SCH (08:19)
[2022-12-06] MEDS: GABAPENTIN 100 MG CAP PO SCH ×3 (08:19→21:00)
[2022-12-06] MEDS: REMEDY PHYTOPLEX Z-GUARD PASTE 113GM TUBE (FROM STOREROOM PRODUCT) TOP SCH ×3 (08:19→21:03)
[2022-12-06] MEDS: NYSTATIN 100,000 UNITS/GM TOPICAL PWD 15GM TOP SCH ×2 (08:20→21:02)
[2022-12-06 09:30] LABS: BASO % 0.5 % (0.0-1.0); EOS # 0.2 10^3/uL (0.0-0.5); EOS % 3.1 % (0.0-3.0); HEMATOCRIT 33.3 % (36.0-47.0); HEMOGLOBIN 10.6 g/dl (12.0-15.5); LYMPH # 1.2 10^3/uL (1.5-5.0); LYMPH % 20.4 % (24.0-44.0); MEAN CORPUSCULAR HEMOGLOBIN 29.5 pg (27.0-33.0); MEAN CORPUSCULAR HGB CONC 31.8 g/dl (32.0-36.5); MEAN CORPUSCULAR VOLUME 92.8 fl (80.0-96.0); MONO # 0.4 10^3/uL (0.0-0.8); MONO % 6.2 % (2.0-8.0); NEUTROPHILS # 4.2 10^3/uL (1.5-8.5); NEUTROPHILS % 69.1 % (36.0-66.0); PLATELET COUNT, AUTOMATED 194 10^3/uL (150-450); RED BLOOD COUNT 3.59 10^6/uL (4.00-5.40); WHITE BLOOD COUNT 6.1 10^3/uL (4.0-10.0)
[2022-12-06 10:03] LABS: BLOOD UREA NITROGEN 19 MG/DL (9-23); CARBON DIOXIDE LEVEL 27 MMOL/L (20-31); CHLORIDE LEVEL 104 MMOL/L (98-107); CREATININE FOR GFR 0.62 MG/DL (0.55-1.30); GLOMERULAR FILTRATION RATE > 60.0 (>32); GLUCOSE, FASTING 158 MG/DL (74-106); POTASSIUM SERUM 3.9 MMOL/L (3.5-5.1); SODIUM LEVEL 138 MMOL/L (136-145)
[2022-12-06 14:00] VITALS: BP 128/60
[2022-12-06] MEDS: DICLOFENAC EPOLAMINE 1.3% PATCH TOP SCH ×2 (17:20→21:02)
[2022-12-06 20:00] VITALS: BP 126/60
[2022-12-06] MEDS: SENNA 8.6 MG TAB (SENOKOT) PO SCH (21:06)
[2022-12-07 06:00] VITALS: BP 115/58
[2022-12-07] MEDS: oxyCODONE 5MG TAB PO SCH ×3 (06:41→17:31)
[2022-12-07] MEDS: COMBIVENT RESPIMAT 100-20MCG INHALER 4GM INH SCH ×3 (07:08→20:22)
[2022-12-07] MEDS: guaiFENesin 200 MG TAB PO SCH ×3 (08:35→21:00)
[2022-12-07] MEDS: LACTOBACILLUS ACIDOPHILUS CAP (BACID) PO SCH ×2 (08:35→17:31)
[2022-12-07] MEDS: GABAPENTIN 100 MG CAP PO SCH ×3 (08:35→21:23)
[2022-12-07] MEDS: FUROSEMIDE 20 MG TAB PO SCH (08:36)
[2022-12-07] MEDS: ACETAMINOPHEN 325 MG TAB PO SCH ×3 (08:36→21:23)
[2022-12-07] MEDS: DICLOFENAC EPOLAMINE 1.3% PATCH TOP SCH ×2 (08:37→21:23)
[2022-12-07] MEDS: NYSTATIN 100,000 UNITS/GM TOPICAL PWD 15GM TOP SCH ×2 (08:37→21:24)
[2022-12-07] MEDS: ENOXAPARIN 40MG/0.4ML SYRINGE (J1650 PER 10MG) SC SCH (08:37)
[2022-12-07] MEDS: REMEDY PHYTOPLEX Z-GUARD PASTE 113GM TUBE (FROM STOREROOM PRODUCT) TOP SCH ×3 (08:37→21:00)
[2022-12-07] MEDS: PANTOPRAZOLE 40MG TAB (PROTONIX) PO SCH (08:38)
[2022-12-07] MEDS: DOCUSATE SODIUM 100MG CAPSULE PO SCH ×2 (08:38→21:00)
[2022-12-07 14:00] VITALS: BP 129/62
[2022-12-07 20:00] VITALS: BP 115/60
[2022-12-07] MEDS: SENNA 8.6 MG TAB (SENOKOT) PO SCH (21:00)
[2022-12-07] MEDS: PREPARATION H OINTMENT (HEMORRHOID) PR PRN (21:24)
[2022-12-08 06:00] VITALS: BP 112/52
[2022-12-08] MEDS: oxyCODONE 5MG TAB PO SCH ×3 (06:27→17:05)
[2022-12-08] MEDS: COMBIVENT RESPIMAT 100-20MCG INHALER 4GM INH SCH ×3 (07:29→21:40)
[2022-12-08] MEDS: FUROSEMIDE 20 MG TAB PO SCH (08:20)
[2022-12-08] MEDS: DOCUSATE SODIUM 100MG CAPSULE PO SCH ×2 (08:21→21:00)
[2022-12-08] MEDS: ACETAMINOPHEN 325 MG TAB PO SCH ×3 (08:21→21:09)
[2022-12-08] MEDS: PANTOPRAZOLE 40MG TAB (PROTONIX) PO SCH (08:21)
[2022-12-08] MEDS: LACTOBACILLUS ACIDOPHILUS CAP (BACID) PO SCH ×2 (08:21→17:05)
[2022-12-08] MEDS: guaiFENesin 200 MG TAB PO SCH ×3 (08:21→21:00)
[2022-12-08] MEDS: GABAPENTIN 100 MG CAP PO SCH ×3 (08:21→21:09)
[2022-12-08] MEDS: NYSTATIN 100,000 UNITS/GM TOPICAL PWD 15GM TOP SCH ×2 (08:22→21:10)
[2022-12-08] MEDS: REMEDY PHYTOPLEX Z-GUARD PASTE 113GM TUBE (FROM STOREROOM PRODUCT) TOP SCH ×3 (08:22→21:00)
[2022-12-08] MEDS: ENOXAPARIN 40MG/0.4ML SYRINGE (J1650 PER 10MG) SC SCH (08:22)
[2022-12-08] MEDS: DICLOFENAC EPOLAMINE 1.3% PATCH TOP SCH ×2 (08:22→21:09)
[2022-12-08 14:00] VITALS: BP 108/68
[2022-12-08 20:00] VITALS: BP 115/56
[2022-12-08] MEDS: SENNA 8.6 MG TAB (SENOKOT) PO SCH (21:00)
[2022-12-08] MEDS: PREPARATION H OINTMENT (HEMORRHOID) PR PRN (21:10)
[2022-12-09 06:00] VITALS: BP 117/55
[2022-12-09 06:00] LABS: BASO % 0.4 % (0.0-1.0); EOS # 0.3 10^3/uL (0.0-0.5); EOS % 4.8 % (0.0-3.0); HEMATOCRIT 32.2 % (36.0-47.0); HEMOGLOBIN 10.1 g/dl (12.0-15.5); LYMPH # 1.4 10^3/uL (1.5-5.0); LYMPH % 26.6 % (24.0-44.0); MEAN CORPUSCULAR HEMOGLOBIN 29.1 pg (27.0-33.0); MEAN CORPUSCULAR HGB CONC 31.4 g/dl (32.0-36.5); MEAN CORPUSCULAR VOLUME 92.8 fl (80.0-96.0); MONO # 0.5 10^3/uL (0.0-0.8); MONO % 8.6 % (2.0-8.0); NEUTROPHILS # 3.1 10^3/uL (1.5-8.5); NEUTROPHILS % 59.2 % (36.0-66.0); PLATELET COUNT, AUTOMATED 175 10^3/uL (150-450); RED BLOOD COUNT 3.47 10^6/uL (4.00-5.40); WHITE BLOOD COUNT 5.3 10^3/uL (4.0-10.0)
[2022-12-09] MEDS: oxyCODONE 5MG TAB PO SCH ×3 (06:08→13:59)
[2022-12-09 06:27] LABS: BLOOD UREA NITROGEN 18 MG/DL (9-23); CALCIUM LEVEL 7.7 MG/DL (8.3-10.6); CARBON DIOXIDE LEVEL 29 MMOL/L (20-31); CHLORIDE LEVEL 106 MMOL/L (98-107); CREATININE FOR GFR 0.67 MG/DL (0.55-1.30); GLOMERULAR FILTRATION RATE > 60.0 (>32); GLUCOSE, FASTING 103 MG/DL (74-106); POTASSIUM SERUM 3.7 MMOL/L (3.5-5.1); SODIUM LEVEL 142 MMOL/L (136-145)
[2022-12-09] MEDS: COMBIVENT RESPIMAT 100-20MCG INHALER 4GM INH SCH ×3 (07:20→19:53)
[2022-12-09] MEDS: LACTOBACILLUS ACIDOPHILUS CAP (BACID) PO SCH ×2 (08:35→17:31)
[2022-12-09] MEDS: FUROSEMIDE 20 MG TAB PO SCH (08:35)
[2022-12-09] MEDS: PANTOPRAZOLE 40MG TAB (PROTONIX) PO SCH ×2 (08:35→08:40)
[2022-12-09] MEDS: GABAPENTIN 100 MG CAP PO SCH ×3 (08:35→20:31)
[2022-12-09] MEDS: guaiFENesin 200 MG TAB PO SCH ×3 (08:35→20:30)
[2022-12-09] MEDS: DOCUSATE SODIUM 100MG CAPSULE PO SCH ×2 (08:36→20:31)
[2022-12-09] MEDS: ACETAMINOPHEN 325 MG TAB PO SCH ×3 (08:36→20:30)
[2022-12-09] MEDS: NYSTATIN 100,000 UNITS/GM TOPICAL PWD 15GM TOP SCH ×2 (08:37→20:31)
[2022-12-09] MEDS: REMEDY PHYTOPLEX Z-GUARD PASTE 113GM TUBE (FROM STOREROOM PRODUCT) TOP SCH ×3 (08:37→20:32)
[2022-12-09] MEDS: ENOXAPARIN 40MG/0.4ML SYRINGE (J1650 PER 10MG) SC SCH (08:37)
[2022-12-09] MEDS: DICLOFENAC EPOLAMINE 1.3% PATCH TOP SCH ×2 (08:38→20:29)
[2022-12-09 14:00] VITALS: BP 106/53
[2022-12-09 20:00] VITALS: BP 114/59
[2022-12-09] MEDS: SENNA 8.6 MG TAB (SENOKOT) PO SCH (20:31)
[2022-12-09] MEDS: oxyCODONE 5MG TAB PO PRN (22:19)
[2022-12-10 06:00] VITALS: BP 135/64
[2022-12-10] MEDS: oxyCODONE 5MG TAB PO SCH ×3 (06:07→15:36)
[2022-12-10] MEDS: DOCUSATE SODIUM 100MG CAPSULE PO SCH ×2 (09:00→20:37)
[2022-12-10] MEDS: REMEDY PHYTOPLEX Z-GUARD PASTE 113GM TUBE (FROM STOREROOM PRODUCT) TOP SCH ×3 (09:00→20:40)
[2022-12-10] MEDS: PANTOPRAZOLE 40MG TAB (PROTONIX) PO SCH (09:00)
[2022-12-10] MEDS: COMBIVENT RESPIMAT 100-20MCG INHALER 4GM INH SCH ×3 (09:15→19:59)
[2022-12-10 09:20] VITALS: BP 137/69
[2022-12-10] MEDS: ENOXAPARIN 40MG/0.4ML SYRINGE (J1650 PER 10MG) SC SCH (09:21)
[2022-12-10] MEDS: GABAPENTIN 100 MG CAP PO SCH ×3 (09:22→20:39)
[2022-12-10] MEDS: DICLOFENAC EPOLAMINE 1.3% PATCH TOP SCH ×2 (09:22→20:38)
[2022-12-10] MEDS: FUROSEMIDE 20 MG TAB PO SCH (09:22)
[2022-12-10] MEDS: ACETAMINOPHEN 325 MG TAB PO SCH ×3 (09:23→20:38)
[2022-12-10] MEDS: NYSTATIN 100,000 UNITS/GM TOPICAL PWD 15GM TOP SCH ×2 (09:24→20:40)
[2022-12-10] MEDS: LACTOBACILLUS ACIDOPHILUS CAP (BACID) PO SCH ×2 (09:24→17:18)
[2022-12-10] MEDS: guaiFENesin 200 MG TAB PO SCH ×3 (09:24→20:39)
[2022-12-10] MEDS: SPIRONOLACTONE 12.5MG PER 1/2 TABLET PO SCH (11:29)
[2022-12-10] MEDS ORDERED: oxyCODONE 5MG TAB PO PRN (13:45)
[2022-12-10 14:00] VITALS: BP 131/60
[2022-12-10 20:00] VITALS: BP 134/63
[2022-12-10] MEDS: SENNA 8.6 MG TAB (SENOKOT) PO SCH (20:38)
[2022-12-11 06:00] VITALS: BP 121/58
[2022-12-11] MEDS: oxyCODONE 5MG TAB PO SCH ×3 (06:07→16:43)
[2022-12-11 06:56] LABS: BASO % 0.4 % (0.0-1.0); EOS # 0.2 10^3/uL (0.0-0.5); EOS % 4.5 % (0.0-3.0); HEMATOCRIT 33.5 % (36.0-47.0); HEMOGLOBIN 10.5 g/dl (12.0-15.5); LYMPH # 1.4 10^3/uL (1.5-5.0); LYMPH % 27.1 % (24.0-44.0); MEAN CORPUSCULAR HEMOGLOBIN 29.2 pg (27.0-33.0); MEAN CORPUSCULAR HGB CONC 31.3 g/dl (32.0-36.5); MEAN CORPUSCULAR VOLUME 93.1 fl (80.0-96.0); MONO # 0.5 10^3/uL (0.0-0.8); MONO % 9.2 % (2.0-8.0); NEUTROPHILS % 58.4 % (36.0-66.0); PLATELET COUNT, AUTOMATED 175 10^3/uL (150-450); WHITE BLOOD COUNT 5.1 10^3/uL (4.0-10.0)
[2022-12-11 07:22] LABS: BLOOD UREA NITROGEN 17 MG/DL (9-23); CARBON DIOXIDE LEVEL 29 MMOL/L (20-31); CHLORIDE LEVEL 106 MMOL/L (98-107); CREATININE FOR GFR 0.65 MG/DL (0.55-1.30); GLOMERULAR FILTRATION RATE > 60.0 (>32); GLUCOSE, FASTING 117 MG/DL (74-106); POTASSIUM SERUM 3.6 MMOL/L (3.5-5.1); SODIUM LEVEL 141 MMOL/L (136-145)
[2022-12-11] MEDS: COMBIVENT RESPIMAT 100-20MCG INHALER 4GM INH SCH ×3 (07:50→20:36)
[2022-12-11] MEDS: DOCUSATE SODIUM 100MG CAPSULE PO SCH ×2 (09:00→20:09)
[2022-12-11] MEDS: PANTOPRAZOLE 40MG TAB (PROTONIX) PO SCH (09:00)
[2022-12-11] MEDS: REMEDY PHYTOPLEX Z-GUARD PASTE 113GM TUBE (FROM STOREROOM PRODUCT) TOP SCH ×3 (09:00→20:08)
[2022-12-11] MEDS: guaiFENesin 200 MG TAB PO SCH ×3 (09:00→20:08)
[2022-12-11] MEDS: DICLOFENAC EPOLAMINE 1.3% PATCH TOP SCH ×2 (09:31→20:11)
[2022-12-11] MEDS: GABAPENTIN 100 MG CAP PO SCH ×3 (09:32→20:07)
[2022-12-11] MEDS: LACTOBACILLUS ACIDOPHILUS CAP (BACID) PO SCH ×2 (09:32→16:43)
[2022-12-11] MEDS: SPIRONOLACTONE 12.5MG PER 1/2 TABLET PO SCH (09:32)
[2022-12-11] MEDS: ACETAMINOPHEN 325 MG TAB PO SCH ×3 (09:32→20:07)
[2022-12-11] MEDS: ENOXAPARIN 40MG/0.4ML SYRINGE (J1650 PER 10MG) SC SCH (09:33)
[2022-12-11] MEDS: FUROSEMIDE 20 MG TAB PO SCH (09:33)
[2022-12-11] MEDS: NYSTATIN 100,000 UNITS/GM TOPICAL PWD 15GM TOP SCH ×2 (09:34→20:08)
[2022-12-11 14:00] VITALS: BP 143/66
[2022-12-11] MEDS: SENNA 8.6 MG TAB (SENOKOT) PO SCH (20:07)
[2022-12-11 21:00] VITALS: BP 117/63
[2022-12-12 05:40] VITALS: BP 135/63
[2022-12-12] MEDS: oxyCODONE 5MG TAB PO SCH ×3 (06:11→17:01)
[2022-12-12] MEDS: COMBIVENT RESPIMAT 100-20MCG INHALER 4GM INH SCH ×3 (07:21→20:15)
[2022-12-12] MEDS: SPIRONOLACTONE 25 MG TAB PO SCH (07:45)
[2022-12-12] MEDS: FUROSEMIDE 20 MG TAB PO SCH (07:45)
[2022-12-12] MEDS: LACTOBACILLUS ACIDOPHILUS CAP (BACID) PO SCH ×2 (07:45→17:01)
[2022-12-12] MEDS: GABAPENTIN 100 MG CAP PO SCH ×3 (07:45→21:18)
[2022-12-12] MEDS: ENOXAPARIN 40MG/0.4ML SYRINGE (J1650 PER 10MG) SC SCH (07:46)
[2022-12-12] MEDS: DICLOFENAC EPOLAMINE 1.3% PATCH TOP SCH ×2 (07:46→21:17)
[2022-12-12] MEDS: ACETAMINOPHEN 325 MG TAB PO SCH ×3 (07:46→21:18)
[2022-12-12] MEDS: DOCUSATE SODIUM 100MG CAPSULE PO SCH ×2 (07:47→21:00)
[2022-12-12] MEDS: NYSTATIN 100,000 UNITS/GM TOPICAL PWD 15GM TOP SCH ×2 (07:47→21:19)
[2022-12-12] MEDS: guaiFENesin 200 MG TAB PO SCH ×3 (07:47→21:00)
[2022-12-12] MEDS: REMEDY PHYTOPLEX Z-GUARD PASTE 113GM TUBE (FROM STOREROOM PRODUCT) TOP SCH ×3 (07:47→21:00)
[2022-12-12] MEDS: PANTOPRAZOLE 40MG TAB (PROTONIX) PO SCH (07:47)
[2022-12-12 14:00] VITALS: BP 131/59
[2022-12-12] MEDS: FUROSEMIDE 40 MG TAB PO SCH (17:01)
[2022-12-12 20:00] VITALS: BP 121/57
[2022-12-12] MEDS: SENNA 8.6 MG TAB (SENOKOT) PO SCH (21:18)
[2022-12-13 06:00] VITALS: BP 137/64
[2022-12-13] MEDS: oxyCODONE 5MG TAB PO SCH ×3 (06:05→17:10)
[2022-12-13 06:12] LABS: BASO % 0.5 % (0.0-1.0); EOS # 0.2 10^3/uL (0.0-0.5); EOS % 4.7 % (0.0-3.0); HEMATOCRIT 34.7 % (36.0-47.0); HEMOGLOBIN 10.7 g/dl (12.0-15.5); LYMPH # 1.4 10^3/uL (1.5-5.0); LYMPH % 32.2 % (24.0-44.0); MEAN CORPUSCULAR HEMOGLOBIN 28.5 pg (27.0-33.0); MEAN CORPUSCULAR HGB CONC 30.8 g/dl (32.0-36.5); MEAN CORPUSCULAR VOLUME 92.5 fl (80.0-96.0); MONO # 0.5 10^3/uL (0.0-0.8); MONO % 10.6 % (2.0-8.0); NEUTROPHILS # 2.3 10^3/uL (1.5-8.5); NEUTROPHILS % 51.8 % (36.0-66.0); PLATELET COUNT, AUTOMATED 174 10^3/uL (150-450); RED BLOOD COUNT 3.75 10^6/uL (4.00-5.40); WHITE BLOOD COUNT 4.4 10^3/uL (4.0-10.0)
[2022-12-13 06:38] LABS: BLOOD UREA NITROGEN 19 MG/DL (9-23); CARBON DIOXIDE LEVEL 31 MMOL/L (20-31); CHLORIDE LEVEL 104 MMOL/L (98-107); GLOMERULAR FILTRATION RATE > 60.0 (>32); GLUCOSE, FASTING 103 MG/DL (74-106); POTASSIUM SERUM 3.8 MMOL/L (3.5-5.1); SODIUM LEVEL 141 MMOL/L (136-145)
[2022-12-13] MEDS: COMBIVENT RESPIMAT 100-20MCG INHALER 4GM INH SCH ×3 (07:23→19:17)
[2022-12-13] MEDS: ENOXAPARIN 40MG/0.4ML SYRINGE (J1650 PER 10MG) SC SCH (08:50)
[2022-12-13] MEDS: DICLOFENAC EPOLAMINE 1.3% PATCH TOP SCH ×2 (08:50→21:00)
[2022-12-13] MEDS: SPIRONOLACTONE 25 MG TAB PO SCH (08:50)
[2022-12-13] MEDS: ACETAMINOPHEN 325 MG TAB PO SCH ×3 (08:50→20:21)
[2022-12-13] MEDS: LACTOBACILLUS ACIDOPHILUS CAP (BACID) PO SCH ×2 (08:51→17:10)
[2022-12-13] MEDS: FUROSEMIDE 40 MG TAB PO SCH ×2 (08:51→17:10)
[2022-12-13] MEDS: GABAPENTIN 100 MG CAP PO SCH ×3 (08:51→20:20)
[2022-12-13] MEDS: DOCUSATE SODIUM 100MG CAPSULE PO SCH ×2 (08:51→20:21)
[2022-12-13] MEDS: guaiFENesin 200 MG TAB PO SCH ×3 (08:51→20:21)
[2022-12-13] MEDS: PANTOPRAZOLE 40MG TAB (PROTONIX) PO SCH (08:51)
[2022-12-13] MEDS: REMEDY PHYTOPLEX Z-GUARD PASTE 113GM TUBE (FROM STOREROOM PRODUCT) TOP SCH ×3 (08:51→20:22)
[2022-12-13] MEDS: NYSTATIN 100,000 UNITS/GM TOPICAL PWD 15GM TOP SCH ×2 (08:51→20:21)
[2022-12-13 14:00] VITALS: BP 130/62
[2022-12-13 19:54] VITALS: BP 112/58
[2022-12-13] MEDS: SENNA 8.6 MG TAB (SENOKOT) PO SCH (20:20)
[2022-12-14 06:00] VITALS: BP 107/56
[2022-12-14] MEDS: oxyCODONE 5MG TAB PO SCH ×3 (06:46→16:16)
[2022-12-14] MEDS: COMBIVENT RESPIMAT 100-20MCG INHALER 4GM INH SCH ×3 (07:20→19:50)
[2022-12-14] MEDS: SPIRONOLACTONE 25 MG TAB PO SCH ×2 (08:05→08:10)
[2022-12-14] MEDS: LACTOBACILLUS ACIDOPHILUS CAP (BACID) PO SCH ×2 (08:05→17:21)
[2022-12-14] MEDS: PANTOPRAZOLE 40MG TAB (PROTONIX) PO SCH (08:06)
[2022-12-14] MEDS: GABAPENTIN 100 MG CAP PO SCH ×3 (08:06→20:25)
[2022-12-14] MEDS: guaiFENesin 200 MG TAB PO SCH ×3 (08:06→19:16)
[2022-12-14] MEDS: DOCUSATE SODIUM 100MG CAPSULE PO SCH ×2 (08:06→19:16)
[2022-12-14] MEDS: ENOXAPARIN 40MG/0.4ML SYRINGE (J1650 PER 10MG) SC SCH (08:07)
[2022-12-14] MEDS: ACETAMINOPHEN 325 MG TAB PO SCH ×3 (08:07→20:26)
[2022-12-14] MEDS: REMEDY PHYTOPLEX Z-GUARD PASTE 113GM TUBE (FROM STOREROOM PRODUCT) TOP SCH ×3 (08:08→20:26)
[2022-12-14] MEDS: DICLOFENAC EPOLAMINE 1.3% PATCH TOP SCH ×2 (08:08→20:25)
[2022-12-14] MEDS: NYSTATIN 100,000 UNITS/GM TOPICAL PWD 15GM TOP SCH ×2 (08:08→20:26)
[2022-12-14] MEDS: FUROSEMIDE 40 MG TAB PO SCH ×2 (08:09→16:16)
[2022-12-14 14:00] VITALS: BP 119/59
[2022-12-14 19:57] VITALS: BP 116/56
[2022-12-14] MEDS: SENNA 8.6 MG TAB (SENOKOT) PO SCH (20:25)
[2022-12-15 06:00] VITALS: BP 123/58
[2022-12-15] MEDS: oxyCODONE 5MG TAB PO SCH ×3 (06:40→16:38)
[2022-12-15] MEDS: COMBIVENT RESPIMAT 100-20MCG INHALER 4GM INH SCH ×3 (07:23→20:05)
[2022-12-15] MEDS: DICLOFENAC EPOLAMINE 1.3% PATCH TOP SCH ×2 (08:32→20:39)
[2022-12-15] MEDS: LACTOBACILLUS ACIDOPHILUS CAP (BACID) PO SCH ×2 (08:32→17:58)
[2022-12-15] MEDS: SPIRONOLACTONE 25 MG TAB PO SCH (08:33)
[2022-12-15] MEDS: FUROSEMIDE 40 MG TAB PO SCH ×2 (08:33→16:39)
[2022-12-15] MEDS: GABAPENTIN 100 MG CAP PO SCH ×3 (08:33→20:41)
[2022-12-15] MEDS: DOCUSATE SODIUM 100MG CAPSULE PO SCH ×2 (08:33→20:39)
[2022-12-15] MEDS: PANTOPRAZOLE 40MG TAB (PROTONIX) PO SCH (08:34)
[2022-12-15] MEDS: ACETAMINOPHEN 325 MG TAB PO SCH ×3 (08:34→20:40)
[2022-12-15] MEDS: guaiFENesin 200 MG TAB PO SCH ×3 (08:34→20:41)
[2022-12-15] MEDS: REMEDY PHYTOPLEX Z-GUARD PASTE 113GM TUBE (FROM STOREROOM PRODUCT) TOP SCH ×3 (08:35→20:42)
[2022-12-15] MEDS: ENOXAPARIN 40MG/0.4ML SYRINGE (J1650 PER 10MG) SC SCH (08:35)
[2022-12-15] MEDS: NYSTATIN 100,000 UNITS/GM TOPICAL PWD 15GM TOP SCH ×2 (08:35→20:41)
[2022-12-15 14:00] VITALS: BP 142/64
[2022-12-15 20:00] VITALS: BP 130/60
[2022-12-15] MEDS: SENNA 8.6 MG TAB (SENOKOT) PO SCH (20:41)
[2022-12-16 06:00] VITALS: BP 121/60
[2022-12-16 06:07] LABS: BASO % 0.2 % (0.0-1.0); EOS # 0.2 10^3/uL (0.0-0.5); HEMATOCRIT 35.1 % (36.0-47.0); LYMPH # 1.4 10^3/uL (1.5-5.0); LYMPH % 27.6 % (24.0-44.0); MEAN CORPUSCULAR HEMOGLOBIN 29.2 pg (27.0-33.0); MEAN CORPUSCULAR HGB CONC 31.3 g/dl (32.0-36.5); MEAN CORPUSCULAR VOLUME 93.1 fl (80.0-96.0); MONO # 0.4 10^3/uL (0.0-0.8); MONO % 8.1 % (2.0-8.0); NEUTROPHILS # 3.1 10^3/uL (1.5-8.5); NEUTROPHILS % 60.9 % (36.0-66.0); PLATELET COUNT, AUTOMATED 155 10^3/uL (150-450); RED BLOOD COUNT 3.77 10^6/uL (4.00-5.40); WHITE BLOOD COUNT 5.1 10^3/uL (4.0-10.0)
[2022-12-16] MEDS: oxyCODONE 5MG TAB PO SCH ×3 (06:10→16:15)
[2022-12-16 06:34] LABS: BLOOD UREA NITROGEN 17 MG/DL (9-23); CALCIUM LEVEL 8.3 MG/DL (8.3-10.6); CARBON DIOXIDE LEVEL 30 MMOL/L (20-31); CHLORIDE LEVEL 101 MMOL/L (98-107); CREATININE FOR GFR 0.71 MG/DL (0.55-1.30); GLOMERULAR FILTRATION RATE > 60.0 (>32); GLUCOSE, FASTING 114 MG/DL (74-106); SODIUM LEVEL 138 MMOL/L (136-145)
[2022-12-16] MEDS: COMBIVENT RESPIMAT 100-20MCG INHALER 4GM INH SCH ×3 (07:20→20:15)
[2022-12-16] MEDS: LACTOBACILLUS ACIDOPHILUS CAP (BACID) PO SCH ×2 (08:55→18:06)
[2022-12-16] MEDS: SPIRONOLACTONE 25 MG TAB PO SCH ×2 (08:55→20:30)
[2022-12-16] MEDS: ACETAMINOPHEN 325 MG TAB PO SCH ×3 (08:55→20:40)
[2022-12-16] MEDS: FUROSEMIDE 40 MG TAB PO SCH ×2 (08:55→18:06)
[2022-12-16] MEDS: ENOXAPARIN 40MG/0.4ML SYRINGE (J1650 PER 10MG) SC SCH (08:55)
[2022-12-16] MEDS: GABAPENTIN 100 MG CAP PO SCH ×3 (08:56→20:39)
[2022-12-16] MEDS: DICLOFENAC EPOLAMINE 1.3% PATCH TOP SCH ×2 (08:56→20:39)
[2022-12-16] MEDS: PANTOPRAZOLE 40MG TAB (PROTONIX) PO SCH (09:00)
[2022-12-16] MEDS: guaiFENesin 200 MG TAB PO SCH ×3 (09:00→20:41)
[2022-12-16] MEDS: REMEDY PHYTOPLEX Z-GUARD PASTE 113GM TUBE (FROM STOREROOM PRODUCT) TOP SCH ×3 (09:00→20:41)
[2022-12-16] MEDS: DOCUSATE SODIUM 100MG CAPSULE PO SCH ×2 (09:00→20:42)
[2022-12-16] MEDS: NYSTATIN 100,000 UNITS/GM TOPICAL PWD 15GM TOP SCH ×2 (09:02→20:41)
[2022-12-16 14:00] VITALS: BP 127/61
[2022-12-16 20:00] VITALS: BP 108/59
[2022-12-16] MEDS: SENNA 8.6 MG TAB (SENOKOT) PO SCH (20:39)
[2022-12-17 06:00] VITALS: BP 114/59
[2022-12-17] MEDS: oxyCODONE 5MG TAB PO SCH ×2 (06:05→11:24)
[2022-12-17] MEDS: COMBIVENT RESPIMAT 100-20MCG INHALER 4GM INH SCH (07:05)
[2022-12-17] MEDS: PANTOPRAZOLE 40MG TAB (PROTONIX) PO SCH ×2 (08:33→08:38)
[2022-12-17] MEDS: LACTOBACILLUS ACIDOPHILUS CAP (BACID) PO SCH (08:34)
[2022-12-17] MEDS: FUROSEMIDE 40 MG TAB PO SCH (08:34)
[2022-12-17] MEDS: GABAPENTIN 100 MG CAP PO SCH (08:34)
[2022-12-17] MEDS: ACETAMINOPHEN 325 MG TAB PO SCH (08:35)
[2022-12-17] MEDS: DOCUSATE SODIUM 100MG CAPSULE PO SCH (08:35)
[2022-12-17] MEDS: ENOXAPARIN 40MG/0.4ML SYRINGE (J1650 PER 10MG) SC SCH (08:35)
[2022-12-17] MEDS: DICLOFENAC EPOLAMINE 1.3% PATCH TOP SCH (08:36)
[2022-12-17] MEDS: guaiFENesin 200 MG TAB PO SCH (08:36)
[2022-12-17] MEDS: NYSTATIN 100,000 UNITS/GM TOPICAL PWD 15GM TOP SCH (08:36)
[2022-12-17] MEDS: REMEDY PHYTOPLEX Z-GUARD PASTE 113GM TUBE (FROM STOREROOM PRODUCT) TOP SCH (08:36)
[2022-12-17] MEDS ORDERED: OXYC-517 PO (09:00)
[2022-12-17] MEDS ORDERED: GABA-1171 PO (09:00)
[2022-12-17] MEDS ORDERED: FURO40TA2 PO (09:00)
[2022-12-17] MEDS ORDERED: ALDA25TA2 PO (09:00)
== END 2022-12-17 11:52 | disposition home health service (06) | DRG 560 ==
LOC: M PM&R 11:15
PROVIDERS: ADMIT Physical Medicine & Rehabilitation; ATTEND Physical Medicine & Rehabilitation
DX: S72.22XD Displaced subtrochanteric fracture of left femur, subsequent encounter for closed fracture with routine healing (principal); N39.0 Urinary tract infection, site not specified; K74.60 Unspecified cirrhosis of liver; Z74.09 Other reduced mobility; Z74.1 Need for assistance with personal care; D64.9 Anemia, unspecified; Z79.899 Other long term (current) drug therapy; E73.9 Lactose intolerance, unspecified; Z90.79 Acquired absence of other genital organ(s); I10 Essential (primary) hypertension; B96.20 Unspecified Escherichia coli [E. coli] as the cause of diseases classified elsewhere; B35.6 Tinea cruris

== ENCOUNTER → 2023-01-02 | Outpatient (CLI) | payer MEDICARE, OTHER ==
[~2023-01-02] MED LIST changes: +ALDA25TA2 PO; +FURO40TA2 PO; +GABA-1171 PO; +OXYC-517 PO
== END ==
LOC: M SOG 10:59
PROVIDERS: ATTEND Physician Assistant
DX: M51.36 Other intervertebral disc degeneration, lumbar region (principal); M16.0 Bilateral primary osteoarthritis of hip; Z98.890 Other specified postprocedural states

== ENCOUNTER → 2023-02-13 | Outpatient (CLI) | payer MEDICARE, OTHER | LOC: M SOG 10:42 | PROVIDERS: ATTEND Physician Assistant | DX: S72.142D Displaced intertrochanteric fracture of left femur, subsequent encounter for closed fracture with routine healing (principal) ==